=== PATIENT | female | born 1985 | race Hispanic/Latino ===

== ENCOUNTER 2021-02-27 01:21 | Emergency (ER) | payer MEDICAID, OTHER ==
[~2021-02-27] VITALS: Ht 157.5 cm; Wt 72.6 kg
[2021-02-27 01:45] VITALS: BP 120/72
== END 2021-02-27 02:13 | disposition home or self-care (01) ==
LOC: EDH 01:21
DX: F43.0 Acute stress reaction (principal); R07.89 Other chest pain
CPT/HCPCS: 93005